=== PATIENT | female | born 1995 | race Two or more races ===

== ENCOUNTER 2025-07-07 10:03 | Outpatient (AMB) | payer MEDICAID, SELFPAY ==
[2025-07-07 10:22] VITALS: BP 113/72; PULSE 90; RESP 18; TEMP 36.4; O2SAT 98; BMI 28.8
--- NOTE | 2025-07-07 10:22 | OBCLNT_ITS ---
Vital Signs 07/07/25 10:22 Height 1.55 m Height Method Measured Weight 69.116 kg Weight Measurement Method Standing Scale BMI 28.8 BP 113/72 Blood Pressure Source Automatic Cuff Blood Pressure Location Left Upper Arm Position Sitting Respiration 18 Pulse 90 Pulse Source Monitor Temp 97.5 F Temp Source Oral Pulse Oximetry (%) 98 Oxygen Delivery Method Room Air Allergies/Home Meds Allergies & Medications Allergies No Known Allergies Allergy (Verified 07/07/25 10:23) Medication Reconciliation No Known Home Medications 07/07/25 [History Confirmed 07/07/25] Intake Visit Data Collection New Patient or Established: New Patient (never been to [facility]) Reason for Visit:: INITIAL CARE Seen by Clinical Staff ONLY (RN/MA): No Agile Tester Required: No Do You Feel Safe at Home: Yes Authorities Contacted: N/A PCP or OBGYN visit in last 3 months: No Hx Now: Yes Are you currently on any form of Control: No Last menstrual period: 01/30/25 Pain Present Currently: No Pain Scale Used: Melendez-Blackman/Numerical Pain scale:: 0 Smoking Status Smoking Status: Never smoker Questionnaires Covid-19 Vaccine Questionnaire Has patient been vacinated for Covid-19 Have you been vacinated for Covid-19: Yes PHQ-9 PHQ-2 Over the last 2 weeks, how often have you been bothered by any of the following problems? 1. Little interest or pleasure in doing things: not at all 2. Feeling down, depressed, or hopeless: not at all Total score: 0 PHQ-9 3. Trouble falling or staying asleep, or sleeping too much: Not at all 4. Feeling tired or having little energy: Not at all 5. Poor appetite or overeating: Not at all 6. Feeling bad about yourself - or that you are a failure or have let yourself or your family down: Not at all 7. Trouble concentrating on things, such as reading the newspaper or watching television: Not at all 8. Moving or speaking so slowly that other people could have noticed? - Or the opposite - being so fidgety or restless that you have been moving around a lot more than usual: not at all 9. Thoughts that you would be better off or of hurting yourself in some way: Not at all Total score: 0 Source: Developed by Drs. Silver Helm, Aurea Gusman, Jamin Dior and colleagues, with an educational azeem from [employer]. Depression screen completed yes Social History Living Situation History Marital Status: Lives With: Family Housing: House Tobacco History Smoking Status: Never smoker Second Hand Smoke Exposure: No Alcohol History Alcohol Intake: Never Domestic Abuse History Do You Feel Safe at Home: Yes History of Present Illness HPI Narrative Chief Complaint First obstetric visit for at 22 weeks and 4 days gestation Cynthia Miranda, a 29-year-old woman, presents for her first obstetric visit. She reports her last menstrual period was on January 30, which corresponds to an estimated gestational age of 22 weeks and 4 days, with a due date of November 10. The patient has a history of one previous section in 2021. Leroy previous section was performed due to the baby being in a non-favorable position (not head down). She reports that the baby never turned, and she experienced excessive contractions during labor. The baby's weight was 6 pounds 7 ounces. The patient denies any current medical problems. She expresses some anxiety about invasive testing procedures, recalling that during her previous , there was mention of a procedure involving poking through. However, she is reassured to learn that current genetic testing is primarily done through blood tests. Cynthia reports that her son from the previous is doing well and has grown significantly, now weighing 40 pounds. She describes him as gigantic compared to his size, indicating a positive outcome from her previous . Surgical History: - section in 2021 due to breech presentation Obstetric History: - GPAL: G2 T1 L1 - Previous : delivery in 2021, complicated by breech presentation Social History: - Has a son born in 2021 - Ultrasound (07-06-2025): Gestational age 21 weeks 6 days, heart rate 165 bpm (normal), head circumference measuring 21 weeks 2 days, overall measurements consistent with 21 weeks 5 days gestation OB Initial Visit OB Flowsheet OB Flowsheet Initial Weight: Not Recorded Date -?-?-?-?-?-?-?-?-?-?-?-?- EGA Weight BP Alb Glu CTX Pres Fundal ht FHR Mov Dilation Station Effacement Hx Notes Visit Note 07/07/25 -?-?-?-?-?-?-?-?-?--?-?-?- 22w 4d 69.116 kg 113/72 Cynthia Miranda, a 29-year-old , presents for her first OB visit at 22 weeks and 4 days by LMP (January 30), with ultrasound dating consistent at 21w6d. She has a history of a prior section in 2021 for breech presentation and failure to progress. She denies current medical issues and expresses anxiety about invasive testing, but was reassured that blood-based screening is standard. heart rate today was 165 bpm, and head and abdomen were visualized on ultrasound. 22-week intrauterine in a patient with a prior . is progressing appropriately with normal heart rate and growth. Plan includes completing initial OB labs, 1-hour glucose screening, and genetic testing. A detailed anatomy ultrasound will be performed. She will continue vitamins and return in 2 weeks for review of labs and to finalize plans for a repeat delivery. Menstrual History Menstrual reliability: definite Flow: normal Menstrual regularity: irregular Monthly: No Age at menarche: 11 On control pills at conception: No Associated symptoms (LMP): Reports fatigue, breast tenderness and bloating OB History : 2 Para: 1 # of Living Children: 1 Delivery History 1st : Child's name: LEIDY date: 03/15/22 sex: male Gestational age at delivery (weeks): 41 Delivery type: History of depression before or after : No Infection History & Risk Evaluation History of STDs: none Genetic Screening & History Genetic Screening/Teratology Counseling - Includes patient, baby's father, or anyone in either family with: 1. Patient's age 35 years or older as of estimated date of delivery: No 2. Thalassemia (Panamanian, Gabonese, Mediterranean, or Background); MCV less than 80: No 3. Neural Tube Defect (Meningomyelocele, Spina Bifida, or Anencephaly): No 4. Congenital Heart Defect: No 5. Down Syndrome: No 6. Tin-Sachs (Ashkenazi Restorationist, Cajun, English [place]): No 7. Lisa Disease (Ashkenazi Restorationist): No 8. Familial Dysautonomia (Ashkenazi Restorationist): No 9. Sickle Cell Disease or Trait (): No 10. Hemophilia or other blood disorders: No 11. Muscular Dystrophy: No 12. Cystic Fibrosis: No 13. Jackie's Chorea: No 14. Mental Retardation/Autism: No 15. Other inherited genetic or chromosomal disorder: No 16. Maternal Metabolic Disorder (EG,TYPE 1 Diabetes, PKU): No 17. Patient or baby's father had a child with defects not listed above: No 18. Recurrent loss or a stillbirth: No 19. Medications (including supplements, vitamins, herbs or otc drugs)/illicit/re creational drugs/alcohol since last menstrual period: No 20. Any other: No Infection History 1. Live with someone with TB or exposed to TB: No 2. Rash or viral illness since last menstrual period: No 3. Hepatitis B,C: No Other (see comments) Source: [employer] Review of Systems Constitutional Constitutional: Reports fatigue Gastrointestinal Gastrointestinal: Reports bloating Endocrine Endocrine: Reports fatigue Exam Narrative Physical exam: - Obstetric Examination: heartbeat detected at 165 bpm. head and stomach visualized on ultrasound. General Limitations: no limitations General Appearance: alert, in no apparent distress and comfortable Head Head exam: atraumatic and normocephalic Eye Eye exam: Present normal appearance, PERRL and EOMI Neck Neck exam: Present normal inspection and full ROM Chest Chest inspection: Present normal inspection and symmetric chest wall rise; Absent tenderness Resp Respiratory exam: Present normal lung sounds bilaterally; Absent respiratory distress Card Cardiovascular exam: Present regular rate and normal rhythm Abdominal Abdominal exam: Present soft and normal bowel sounds; Absent tenderness, guarding, rebound or rigidity Neuro Neurological exam: Present alert and oriented X3 Psych Psychiatric exam: Present normal affect Assessment & Plan Diagnosis / Problem List (1) Supervision of high risk , unspecified, first trimester: Status: Acute (2) Maternal care for low transverse scar from previous delivery: Status: Acute (3) Uterine size date discrepancy: Status: Acute Plan , intrauterine, 22 weeks 4 days Assessment: Patient is at 21 weeks 6 days gestation based on ultrasound measurements, which closely aligns with her reported last menstrual period of January 30. The estimated due date is November 08 or . heart rate was measured at 165 bpm, which is within normal range. The patient has a history of one previous section in 2021 due to malpresentation (breech) and failure to progress. The previous was not macrosomic, weighing 6 lbs 7 oz. Plan: - Complete initial OB panel, including one-hour glucose test and Nipent - Perform detailed ultrasound for more precise measurements and anatomy survey - Offer genetic testing for Down syndrome and sex determination - Continue vitamins - Schedule follow-up appointment in 2 weeks to review lab results - Anticipate repeat section for delivery due to previous
== END 2025-07-07 11:06 | disposition home or self-care (01) ==
LOC: HODSOBC 10:03
PROVIDERS: Supervising Provider Obstetrics & Gynecology; Visit Provider Obstetrics & Gynecology
DX: O09.292 Supervision of pregnancy with other poor reproductive or obstetric history, second trimester (principal); O34.211 Maternal care for low transverse scar from previous cesarean delivery; O09.892 Supervision of other high risk pregnancies, second trimester; O26.842 Uterine size-date discrepancy, second trimester; Z3A.22 22 weeks gestation of pregnancy; Z87.59 Personal history of other complications of pregnancy, childbirth and the puerperium
CPT/HCPCS: 99204; G0463

== ENCOUNTER → 2025-07-28 | Outpatient (CLI) | payer MEDICAID, SELFPAY ==
--- NOTE | 2025-07-28 09:36 | XR_ITS ---
Examination: Complete OB ultrasound greater than 14 weeks Date and time of exam: July 28, 2025, 0945 hours INDICATIONS: Diagnosis late to care Findings: Viable intrauterine single fetus with single amniotic sac presentation cephalic spine anterior Cardiac motion 145 bpm Placenta fundal posterior grade 1 Umbilical cord insertion seen Amniotic fluid volume adequate Cervix 4.5 cm closed Ovaries obscured by bowel gas. Composite estimated gestational age based on BPD, head circumference, abdominal circumference, femur length is 25 weeks 1 day Estimated weight 740 g. Survey of intracranial anatomy, spinal anatomy, abdominal anatomy, four-chamber heart performed with no abnormalities identified. Impression: Viable intrauterine gestation in cephalic presentation.
== END | disposition home or self-care (01) ==
LOC: CDIM 09:17
PROVIDERS: Referring Provider Obstetrics & Gynecology; Visit Provider Obstetrics & Gynecology
DX: O34.211 Maternal care for low transverse scar from previous cesarean delivery (principal); O09.91 Supervision of high risk pregnancy, unspecified, first trimester; O26.849 Uterine size-date discrepancy, unspecified trimester; Z3A.25 25 weeks gestation of pregnancy
CPT/HCPCS: 76805

== ENCOUNTER 2025-08-11 11:13 | Outpatient (AMB) | payer MEDICAID, SELFPAY ==
--- NOTE | 2025-08-11 11:50 | OBCLNT_ITS ---
Vital Signs 08/11/25 11:51 Height 1.55 m Height Method Stated Weight 72.348 kg Weight Measurement Method Standing Scale BMI 30.1 BP 113/72 Blood Pressure Source Automatic Cuff Blood Pressure Location Right Upper Arm Position Sitting Respiration 18 Pulse 98 Pulse Source Monitor Temp 97.8 F Temp Source Temporal Artery Scan Pulse Oximetry (%) 98 Oxygen Delivery Method Room Air Allergies/Home Meds Allergies & Medications Allergies No Known Allergies Allergy (Verified 08/11/25 12:02) Medication Reconciliation No Known Home Medications 07/07/25 [History Confirmed 08/11/25] Intake Visit Data Collection New Patient or Established: Established Patient (seen at [facility] within 3 years) Reason for Visit:: C LAB RESULTS Seen by Clinical Staff ONLY (RN/MA): No Washhouse Worker Required: No Do You Feel Safe at Home: Yes Authorities Contacted: N/A PCP or OBGYN visit in last 3 months: Yes Date of Last PCP or OBGYN visit: 07/07/25 Hx Now: Yes Are you currently on any form of Control: No Pain Present Currently: No Pain Scale Used: Melendez-Blackman/Numerical Pain scale:: 0 Smoking Status Smoking Status: Never smoker Immunizations Flu Vaccine in the Last 12 Months: No Flu Vaccine Exclusion Criteria: No Exclusion Criteria Questionnaires Covid-19 Vaccine Questionnaire Has patient been vacinated for Covid-19 Have you been vacinated for Covid-19: No PHQ-9 PHQ-2 Over the last 2 weeks, how often have you been bothered by any of the following problems? 1. Little interest or pleasure in doing things: not at all 2. Feeling down, depressed, or hopeless: not at all Total score: 0 PHQ-9 3. Trouble falling or staying asleep, or sleeping too much: Not at all 4. Feeling tired or having little energy: Not at all 5. Poor appetite or overeating: Not at all 6. Feeling bad about yourself - or that you are a failure or have let yourself or your family down: Not at all 7. Trouble concentrating on things, such as reading the newspaper or watching television: Not at all 8. Moving or speaking so slowly that other people could have noticed? - Or the opposite - being so fidgety or restless that you have been moving around a lot more than usual: not at all 9. Thoughts that you would be better off or of hurting yourself in some way: Not at all Total score: 0 If you checked off any problems, how difficult have these problems made it for you to do your work, take care of things at home, or get along with other people?: not difficult at all Source: Developed by Drs. Silver Helm, Aurea Gusman, Jamin Dior and colleagues, with an educational azeem from [employer]. Depression screen completed yes Social History Living Situation History Marital Status: Lives With: Family Housing: House Tobacco History Smoking Status: Never smoker Second Hand Smoke Exposure: No Alcohol History Alcohol Intake: Never Domestic Abuse History Do You Feel Safe at Home: Yes Care OB Visit Log OB Flowsheet Initial Weight: Not Recorded Date -?-?-?-?-?-?-?-?-?-?-?-?- EGA Weight BP Alb Glu CTX Pres Fundal ht FHR Mov Dilation Station Effacement Hx Notes Visit Note 07/07/25 -?-?-?-?-?-?-?-?-?-?-?-?- 22w 1d 69.116 kg 113/72 Cynthia Miranda, a 29-year-old , presents for her first OB visit at 22 weeks and 4 days by LMP (January 30), with ultrasound dating consistent at 21w6d. She has a history of a prior section in 2021 for breech presentation and failure to progress. She denies current medical issues and expresses anxiety about invasive testing, but was reassured that blood-based screening is standard. heart rate today was 165 bpm, and head and abdomen were visualized on ultrasound. 22-week intrauterine in a patient with a prior . is progressing appropriately with normal heart rate and growth. Plan includes completing initial OB labs, 1-hour glucose screening, and genetic testing. A detailed anatomy ultrasound will be performed. She will continue vitamins and return in 2 weeks for review of labs and to finalize plans for a repeat delivery. 08/11/25 -?-?-?-?-?-?-?-?-?-?-?-?- 27w 1d 72.348 kg 113/72 absent cephalic 28 145 - She reports experiencing muscle cramps, particularly in her legs. - Cramps typically occur once or twice per night - Last night was particularly bad with cramps occurring in both legs - She attributes increased cramping to walking more than usual - Cramps involve the muscle getting st uck in a cramped position - She reports adequate water intake and adherence to vitamins. - She describes an active baby that does somersaults. - Glucose screening test for diabetes - order provided, to be completed within the next month - Magnesium supplement for muscle cramps - Continue vitamins - Maintain hydration with minimum 32 oun fly of water daily - Follow-up appointment in 4 weeks, then every 2 weeks thereafter ЕЛЕНА Calculator Estimated Delivery Date Method Current WG Current Estimate 11/09/25 Ultrasound #1 27w 1d Other Estimates 11/06/25 LMP (Certain) 27w 4d Notes Visit Date: 08/11/25 Last Updated by: Dakota Robertson MD - laboratory panel: - Hepatitis B: negative - Hepatitis C: negative - RPR: non-reactive - Rubella: immune - Blood group: A positive - Antibody screen: negative - HIV: negative - Gonorrhea: negative - Chlamydia: negative - Hemoglobin: 11.5 g/dL - Platelets: 239 - NIPT (Non-Invasive Testing): negative for all trisomies, gender consistent with male - Ultrasound (07/28/2025): gestational age 25 weeks 1 day, consistent with estimated due date of November 06, 2025 Office Procedures OBC Clinic LOC & Office Proc's Nursing/Assessment Patient Status: Established Patient OB Clinic Nursing Assessment: Medication Reconciliation, Update PMH in EMR and Vital Signs OB Clinic Coordination of Care: Complex Care and Chronic Disease 1-5, Education Complex Pt/Fam, Consent,records obtained, informed consent, Lab and Imaging orders, Results/Orders obtained and Staff clarify orders Special Needs: Heart tones Established Patient Charge Established Patient Point Assignment: 140 Established Patient Point Charge: EP Level 4 (120-155) Assessment & Plan Diagnosis / Problem List (1) Uterine size date discrepancy: Status: Acute (2) Maternal care for low transverse scar from previous delivery: Status: Acute Plan Problem List - Muscle cramps Assessment 29-year-old at 27 weeks 4 days gestation with history of prior section and estimated due date of November 06, 2025. Patient presents with muscle cramps, particularly nocturnal leg cramps that have recently worsened. heart rate is 145 bpm, which is normal. Patient reports active movement with baby performing somersaults. All laboratory results are within normal limits including negative infectious disease screening, hemoglobin 11.5, and negative NIPT for trisomies. Ultrasound dating is consistent with menstrual dating. Patient has had limited care with only one prior visit and pending M referral. Plan - Glucose screening test for diabetes - order provided, to be completed within the next month - Magnesium supplement for muscle cramps - Continue vitamins - Maintain hydration with minimum 32 ounces of water daily - Follow-up appointment in 4 weeks, then every 2 weeks thereafter 1. Progress Reviewed gestational age (27 weeks 4 days), growth, and heart rate (145 bpm, normal). Planned frequent visits (every 4 weeks, then every 2 weeks). 2. Instructed patient to monitor movements and report decreases immediately. 3. Testing Counseled on routine third-trimester labs per guidelines (glucose screening ordered for diabetes testing). Discussed potential need for ultrasound or monitoring based on risk factors. 4. Preeclampsia Precaution Educated on preeclampsia signs: severe headache, vision changes, right upper quadrant pain, sudden swelling. Advised urgent reporting of symptoms and discussed blood pressure monitoring if high risk. 5. Labor Precautions Reviewed labor signs: regular contractions, pelvic pressure, back pain, bleeding, or fluid leakage. Instructed to seek immediate care for these symptoms. 6. Lifestyle and Delivery Preparation Reinforced vitamins, nutrition (minimum 32 ounces water daily), and safe activity. Recommended magnesium supplement for muscle cramps. Discussed plan, pain management, and . Advised on labor preparation (e.g., hospital bag) and expectations. 7. Psychosocial Support Assessed emotional well-being and offered resources for mental health or parenting support.
[2025-08-11 11:51] VITALS: BP 113/72; PULSE 98; RESP 18; TEMP 36.6; O2SAT 98; BMI 30.1
== END 2025-08-11 12:08 | disposition home or self-care (01) ==
PROVIDERS: Supervising Provider Obstetrics & Gynecology; Visit Provider Obstetrics & Gynecology
DX: O09.892 Supervision of other high risk pregnancies, second trimester (principal); O26.842 Uterine size-date discrepancy, second trimester; O09.292 Supervision of pregnancy with other poor reproductive or obstetric history, second trimester; O34.211 Maternal care for low transverse scar from previous cesarean delivery; O99.891 Other specified diseases and conditions complicating pregnancy; R25.2 Cramp and spasm; Z3A.27 27 weeks gestation of pregnancy; Z87.59 Personal history of other complications of pregnancy, childbirth and the puerperium
CPT/HCPCS: 99214; G0463

== ENCOUNTER 2025-09-08 08:58 | Outpatient (AMB) | payer MEDICAID, SELFPAY ==
[2025-09-08 09:14] VITALS: BP 123/98; PULSE 105; RESP 18; TEMP 36.5; O2SAT 98; BMI 30.3
--- NOTE | 2025-09-08 09:14 | OBCLNT_ITS ---
Vital Signs 09/08/25 09:14 Height 1.55 m Height Method Stated Weight 72.802 kg Weight Measurement Method Standing Scale BMI 30.3 BP 123/98 H Blood Pressure Source Automatic Cuff Blood Pressure Location Right Upper Arm Position Sitting Respiration 18 Pulse 105 H Pulse Source Monitor Temp 97.7 F Temp Source Temporal Artery Scan Pulse Oximetry (%) 98 Oxygen Delivery Method Room Air Allergies/Home Meds Allergies & Medications Allergies No Known Allergies Allergy (Verified 09/08/25 09:15) Medication Reconciliation No Known Home Medications 07/07/25 [History Confirmed 09/08/25] Immunizations Immunizations Flu Vaccine in the Last 12 Months: No Flu Vaccine Exclusion Criteria: Refused by Patient Care OB Visit Log OB Flowsheet Initial Weight: Not Recorded Date -?-?-?-?-?-?-?-?-?-?-?-?- EGA Weight BP Alb Glu CTX Pres Fundal ht FHR Mov Dilation Station Effacement Hx Notes Visit Note 07/07/25 -?-?-?-?-?-?-?-?-?-?-?-?- 22w 1d 69.116 kg 113/72 Cynthia Miranda, a 29-year-old , presents for her first OB visit at 22 weeks and 4 days by LMP (January 30), with ultrasound dating consistent at 21w6d. She has a history of a prior section in 2021 for breech presentation and failure to progress. She denies current medical issues and expresses anxiety about invasive testing, but was reassured that blood-based screening is standard. heart rate today was 165 bpm, and head and abdomen were visualized on ultrasound. 22-week intrauterine in a patient with a prior . is progressing appropriately with normal heart rate and growth. Plan includes completing initial OB labs, 1-hour glucose screening, and genetic testing. A detailed anatomy ultrasound will be performed. She will continue vitamins and return in 2 weeks for review of labs and to finalize plans for a repeat delivery. 08/11/25 -?-?-?-?-?-?-?-?-?-?-?-?- 27w 1d 72.348 kg 113/72 absent cephalic 28 145 - She reports experiencing muscle cramps, particularly in her legs. - Cramps typically occur once or twice per night - Last night was particularly bad with cramps occurring in both legs - She attributes increased cramping to walking more than usual - Cramps involve the muscle getting st uck in a cramped position - She reports adequate water intake and adherence to vitamins. - She describes an active baby that does somersaults. - Glucose screening test for diabetes - order provided, to be completed within the next month - Magnesium supplement for muscle cramps - Continue vitamins - Maintain hydration with minimum 32 oun fly of water daily - Follow-up appointment in 4 weeks, then every 2 weeks thereafter 09/08/25 -?-?-?-?-?-?-?-?-?-?-?-?- 31w 1d 72.802 kg 123/98 absent cephalic 32 165 - She reports no contractions, cramping, leaking, or bloody discharge. - Patient notes movement with the baby keeps turning but denies any concerning symptoms. - She completed a one-hour glucose test as ordered, though results are pending due to [facility] system issues. - Patient confirms overall well-being wi th no acute complaints or changes since last visit. - Await one hour glucose test results once [facility] portal system is restored - Maternal medicine ultrasound ref erral to evaluate placental location relative to previous scar, scheduled around 34 weeks gestation - booking to be scheduled when patient reaches 37-38 weeks gestation - Hospital registration to be arranged a fter is confirmed - Follow up in 2 weeks - Patient to expect call from Dr. Krishna alva's office for ultrasound appointment ЕЛЕНА Calculator Estimated Delivery Date Method Current WG Current Estimate 11/09/25 Ultrasound #1 31w 1d Other Estimates 11/06/25 LMP (Certain) 31w 4d Notes Visit Date: 08/11/25 Last Updated by: Dakota Robertson MD - laboratory panel: - Hepatitis B: negative - Hepatitis C: negative - RPR: non-reactive - Rubella: immune - Blood group: A positive - Antibody screen: negative - HIV: negative - Gonorrhea: negative - Chlamydia: negative - Hemoglobin: 11.5 g/dL - Platelets: 239 - NIPT (Non-Invasive Testing): negative for all trisomies, gender consistent with male - Ultrasound (07/28/2025): gestational age 25 weeks 1 day, consistent with estimated due date of November 06, 2025 Office Procedures OBC Clinic LOC & Office Proc's Nursing/Assessment Patient Status: Established Patient OB Clinic Nursing Assessment: Medication Reconciliation, Update PMH in EMR and Vital Signs OB Clinic Coordination of Care: Complex Care and Chronic Disease 1-5, Education Complex Pt/Fam, Consent,records obtained, informed consent, Lab and Imaging orders, Results/Orders obtained and Staff clarify orders Special Needs: Heart tones Established Patient Charge Established Patient Point Assignment: 140 Established Patient Point Charge: EP Level 4 (120-155) Assessment & Plan Diagnosis / Problem List (1) Uterine size date discrepancy: Status: Acute (2) Maternal care for low transverse scar from previous delivery: Status: Acute Plan Problem List - at 31 weeks and 1 day gestation - History of section - Placental location requiring evaluation Assessment 31-week and 1-day patient presenting for routine care. Patient reports movement with no contractions, cramping, leaking, or bloody discharge. heart rate is 147-148 bpm. One-hour glucose test results are pending due to [facility] system being down. Patient has history of previous section with need for maternal medicine consultation to evaluate placental location in relation to prior scar. Plan - Await one hour glucose test results once [facility] portal system is restored - Maternal medicine ultrasound referral to evaluate placental location relative to previous scar, scheduled around 34 weeks gestation - booking to be scheduled when patient reaches 37-38 weeks gestation - Hospital registration to be arranged after is confirmed - Follow up in 2 weeks - Patient to expect call from Dr. Buitrago's office for ultrasound appointment 1. Progress Reviewed gestational age (31 weeks 1 day), growth, and heart rate (147-148 bpm). Planned frequent visits (every 2 weeks until 36 weeks, then weekly). 2. Instructed patient to monitor movements and report decreases immediately. 3. Testing Counseled on routine third-trimester labs per guidelines. One hour glucose test completed but results pending due to [facility] system issues. Discussed potential need for ultrasound or monitoring based on risk factors. Maternal medicine referral placed for specialized ultrasound at 34 weeks to evaluate placental location relative to previous scar. 4. Preeclampsia Precaution Educated on preeclampsia signs: severe headache, vision changes, right upper quadrant pain, sudden swelling. Advised urgent reporting of symptoms and discussed blood pressure monitoring if high risk. 5. Labor Precautions Reviewed labor signs: regular contractions, pelvic pressure, back pain, bleeding, or fluid leakage. Instructed to seek immediate care for these symptoms. Patient denied contractions, cramping, leaking, or bloody discharge. 6. Lifestyle and Delivery Preparation Reinforced vitamins, nutrition, and safe activity. Discussed plan, pain management, and . booking planned for 39 weeks with hospital registration to follow. Advised on labor preparation (e.g., hospital bag) and expectations. 7. Psychosocial Support Assessed emotional well-being and offered resources for mental health or parenting support.
== END 2025-09-08 09:32 | disposition home or self-care (01) ==
LOC: HODSOBC 08:58
PROVIDERS: Supervising Provider Obstetrics & Gynecology; Visit Provider Obstetrics & Gynecology
DX: O09.893 Supervision of other high risk pregnancies, third trimester (principal); O26.843 Uterine size-date discrepancy, third trimester; O09.293 Supervision of pregnancy with other poor reproductive or obstetric history, third trimester; O34.211 Maternal care for low transverse scar from previous cesarean delivery; Z3A.31 31 weeks gestation of pregnancy; Z28.21 Immunization not carried out because of patient refusal
CPT/HCPCS: 99214; G0463

== ENCOUNTER 2025-09-23 08:20 | Outpatient (AMB) | payer MEDICAID, SELFPAY ==
[2025-09-23 08:39] VITALS: BP 117/75; PULSE 106; RESP 20; TEMP 36.7; O2SAT 97; BMI 30.6
--- NOTE | 2025-09-23 08:39 | OBCLNT_ITS ---
Vital Signs 09/23/25 08:39 Height 1.55 m Height Method Stated Weight 73.595 kg Weight Measurement Method Standing Scale BMI 30.6 BP 117/75 Blood Pressure Source Automatic Cuff Blood Pressure Location Left Upper Arm Position Sitting Respiration 20 Pulse 106 H Pulse Source Monitor Temp 98.1 F Temp Source Oral Pulse Oximetry (%) 97 Oxygen Delivery Method Room Air Allergies/Home Meds Allergies & Medications Allergies No Known Allergies Allergy (Verified 09/23/25 08:42) Medication Reconciliation No Known Home Medications 07/07/25 [History Confirmed 09/23/25] Immunizations Immunizations Flu Vaccine in the Last 12 Months: No Flu Vaccine Exclusion Criteria: Refused by Patient Care OB Visit Log OB Flowsheet Initial Weight: Not Recorded Date -?-?-?-?-?-?-?-?-?-?-?-?- EGA Weight BP Alb Glu CTX Pres Fundal ht FHR Mov Dilation Station Effacement Hx Notes Visit Note 07/07/25 -?-?-?-?-?-?-?-?-?-?-?-?- 22w 1d 69.116 kg 113/72 Cynthia Miranda, a 29-year-old , presents for her first OB visit at 22 weeks and 4 days by LMP (January 30), with ultrasound dating consistent at 21w6d. She has a history of a prior section in 2021 for breech presentation and failure to progress. She denies current medical issues and expresses anxiety about invasive testing, but was reassured that blood-based screening is standard. heart rate today was 165 bpm, and head and abdomen were visualized on ultrasound. 22-week intrauterine in a patient with a prior . is progressing appropriately with normal heart rate and growth. Plan includes completing initial OB labs, 1-hour glucose screening, and genetic testing. A detailed anatomy ultrasound will be performed. She will continue vitamins and return in 2 weeks for review of labs and to finalize plans for a repeat delivery. 08/11/25 -?-?-?-?-?-?-?-?-?-?-?-?- 27w 1d 72.348 kg 113/72 absent cephalic 28 145 - She reports experiencing muscle cramps, particularly in her legs. - Cramps typically occur once or twice per night - Last night was particularly bad with cramps occurring in both legs - She attributes increased cramping to walking more than usual - Cramps involve the muscle getting st uck in a cramped position - She reports adequate water intake and adherence to vitamins. - She describes an active baby that does somersaults. - Glucose screening test for diabetes - order provided, to be completed within the next month - Magnesium supplement for muscle cramps - Continue vitamins - Maintain hydration with minimum 32 oun fly of water daily - Follow-up appointment in 4 weeks, then every 2 weeks thereafter 09/08/25 -?-?-?-?-?-?-?-?-?-?-?-?- 31w 1d 72.802 kg 123/98 absent cephalic 32 165 - She reports no contractions, cramping, leaking, or bloody discharge. - Patient notes movement with the baby keeps turning but denies any concerning symptoms. - She completed a one-hour glucose test as ordered, though results are pending due to [facility] system issues. - Patient confirms overall well-being wi th no acute complaints or changes since last visit. - Await one hour glucose test results once [facility] portal system is restored - Maternal medicine ultrasound ref erral to evaluate placental location relative to previous scar, scheduled around 34 weeks gestation - booking to be scheduled when patient reaches 37-38 weeks gestation - Hospital registration to be arranged a fter is confirmed - Follow up in 2 weeks - Patient to expect call from Dr. Krishna alva's office for ultrasound appointment 09/23/25 -?-?-?-?-?-?-?-?-?-?-?-?- 33w 2d 73.595 kg 117/75 absent cephalic 34 155 - She reports the baby is active with frequent whole-body movements and somersaults rather than kicking. - She took the stairs this morning witho ut apparent difficulty. - She is awaiting maternal ultraso und results to schedule her section date. - She has been trying to obtain an appoi ntment with Dr. Tim Buitrago's office after experiencing confusion about referral processing through the hospital versus the office directly. - Cordell naranjo to call Dr. Tim Buitrago's office ([phone]) on to follow up on maternal ultrasound referral status - If ultrasound appointment is scheduled more than 15 days out, patient to call back for alternative arrangements - date to be scheduled pending ultrasound results to determine position - Follow up in 2 weeks, then weekly visi ts thereafter ЕЛЕНА Calculator Estimated Delivery Date Method Current WG Current Estimate 11/09/25 Ultrasound #1 33w 2d Other Estimates 11/06/25 LMP (Certain) 33w 5d Notes Visit Date: 08/11/25 Last Updated by: Dakota Robertson MD - laboratory panel: - Hepatitis B: negative - Hepatitis C: negative - RPR: non-reactive - Rubella: immune - Blood group: A positive - Antibody screen: negative - HIV: negative - Gonorrhea: negative - Chlamydia: negative - Hemoglobin: 11.5 g/dL - Platelets: 239 - NIPT (Non-Invasive Testing): negative for all trisomies, gender consistent with male - Ultrasound (07/28/2025): gestational age 25 weeks 1 day, consistent with estimated due date of November 06, 2025 Office Procedures OBC Clinic LOC & Office Proc's Nursing/Assessment Patient Status: Established Patient OB Clinic Nursing Assessment: Medication Reconciliation, Update PMH in EMR and Vital Signs OB Clinic Coordination of Care: Complex Care and Chronic Disease 1-5, Consent,records obtained, informed consent, Education Simp Pt/Fam, 1 Ins Authorization, Lab and Imaging orders, Results/Orders obtained and Staff clarify orders Special Needs: Heart tones Established Patient Charge Established Patient Point Assignment: 150 Established Patient Point Charge: EP Level 4 (120-155) Assessment & Plan Diagnosis / Problem List (1) Uterine size date discrepancy: Status: Acute (2) Maternal care for low transverse scar from previous delivery: Status: Acute Plan Problem List - at 33 weeks and 2 days gestation - Planned section Assessment 33-week 2-day patient with pending maternal ultrasound results needed to determine positioning prior to scheduling section. Patient reports active movement with whole-body movements and somersaults rather than kicking. heart rate is 146 bpm, which is normal. Patient has difficulty accessing maternal medicine specialist due to referral processing issues. Plan - Patient to call Dr. Tim Buitrago's office ([phone]) on to follow up on maternal ultrasound referral status - If ultrasound appointment is scheduled more than 15 days out, patient to call back for alternative arrangements - date to be scheduled pending ultrasound results to determine position - Follow up in 2 weeks, then weekly visits thereafter 1. Progress Reviewed gestational age at 33 weeks and 2 days, growth, and heart rate of 146 bpm (normal). Patient reports active baby with whole-body movements and somersaults. Planned frequent visits (every 2 weeks until 36 weeks, then weekly) - next visit scheduled in 2 weeks. 2. Instructed patient to monitor movements and report decreases immediately. 3. Testing Monoglucose results were provided at last visit. Maternal ultrasound results still pending - patient instructed to contact Dr. Tim Buitrago's office ([phone]) on to follow up on referral status and scheduling. 4. Preeclampsia Precaution Educated on preeclampsia signs: severe headache, vision changes, right upper quadrant pain, sudden swelling. Advised urgent reporting of symptoms and discussed blood pressure monitoring if high risk. 5. Labor Precautions Reviewed labor signs: regular contractions, pelvic pressure, back pain, bleeding, or fluid leakage. Instructed to seek immediate care for these symptoms. 6. Lifestyle and Delivery Preparation Patient reports taking stairs for activity. Planned section delivery - waiting for ultrasound results to determine position before scheduling C- section date. Reinforced vitamins, nutrition, and safe activity. 7. Psychosocial Support Assessed emotional well-being and offered resources for mental health or parenting support.
== END 2025-09-23 09:02 | disposition home or self-care (01) ==
LOC: HODSOBC 08:20
PROVIDERS: Supervising Provider Obstetrics & Gynecology; Visit Provider Obstetrics & Gynecology
DX: O09.893 Supervision of other high risk pregnancies, third trimester (principal); O26.843 Uterine size-date discrepancy, third trimester; O09.293 Supervision of pregnancy with other poor reproductive or obstetric history, third trimester; O34.211 Maternal care for low transverse scar from previous cesarean delivery; Z3A.33 33 weeks gestation of pregnancy; Z28.21 Immunization not carried out because of patient refusal
CPT/HCPCS: 99214; G0463

== ENCOUNTER 2025-10-06 09:16 | Outpatient (AMB) | payer MEDICAID, SELFPAY ==
[2025-10-06 09:26] VITALS: BP 115/77; PULSE 101; RESP 18; TEMP 36.7; O2SAT 98; BMI 31.1
--- NOTE | 2025-10-06 09:26 | OBCLNT_ITS ---
Vital Signs 10/06/25 09:26 Height 1.55 m Height Method Stated Weight 74.899 kg Weight Measurement Method Standing Scale BMI 31.1 BP 115/77 Blood Pressure Source Automatic Cuff Blood Pressure Location Left Upper Arm Position Sitting Respiration 18 Pulse 101 H Pulse Source Monitor Temp 98.1 F Temp Source Oral Pulse Oximetry (%) 98 Oxygen Delivery Method Room Air Allergies/Home Meds Allergies & Medications Allergies No Known Allergies Allergy (Verified 10/06/25 09:26) Medication Reconciliation vitamins-iron fumarate 66 mg iron-folic acid 1 mg tablet tab PO 10/06/25 [History Confirmed 10/06/25] Immunizations Immunizations Flu Vaccine in the Last 12 Months: No Flu Vaccine Exclusion Criteria: Refused by Patient Care OB Visit Log OB Flowsheet Initial Weight: Not Recorded Date -?-?-?-?-?-?-?-?-?-?-?-?- EGA Weight BP Alb Glu CTX Pres Fundal ht FHR Mov Dilation Station Effacement Hx Notes Visit Note 07/07/25 -?-?-?-?-?-?-?-?-?-?-?-?- w 4d 69.116 kg 113/72 Cynthia Miranda, a 29-year-old , presents for her first OB visit at 22 weeks and 4 days by LMP (January 30), with ultrasound dating consistent at 21w6d. She has a history of a prior section in 2021 for breech presentation and failure to progress. She denies current medical issues and expresses anxiety about invasive testing, but was reassured that blood-based screening is standard. heart rate today was 165 bpm, and head and abdomen were visualized on ultrasound. 22-week intrauterine in a patient with a prior . is progressing appropriately with normal heart rate and growth. Plan includes completing initial OB labs, 1-hour glucose screening, and genetic testing. A detailed anatomy ultrasound will be performed. She will continue vitamins and return in 2 weeks for review of labs and to finalize plans for a repeat delivery. 08/11/25 -?-?-?-?-?-?-?-?-?-?-?-?- 27w 4d 72.348 kg 113/72 absent cephalic 28 145 - She reports experiencing muscle cramps, particularly in her legs. - Cramps typically occur once or twice per night - Last night was particularly bad with cramps occurring in both legs - She attributes increased cramping to walking more than usual - Cramps involve the muscle getting st uck in a cramped position - She reports adequate water intake and adherence to vitamins. - She describes an active baby that does somersaults. - Glucose screening test for diabetes - order provided, to be completed within the next month - Magnesium supplement for muscle cramps - Continue vitamins - Maintain hydration with minimum 32 oun fly of water daily - Follow-up appointment in 4 weeks, then every 2 weeks thereafter 09/08/25 -?-?-?-?-?-?-?-?-?-?-?-?- 31w 4d 72.802 kg 123/98 absent cephalic 32 165 - She reports no contractions, cramping, leaking, or bloody discharge. - Patient notes movement with the baby keeps turning but denies any concerning symptoms. - She completed a one-hour glucose test as ordered, though results are pending due to [facility] system issues. - Patient confirms overall well-being wi th no acute complaints or changes since last visit. - Await one hour glucose test results once [facility] portal system is restored - Maternal medicine ultrasound ref erral to evaluate placental location relative to previous scar, scheduled around 34 weeks gestation - booking to be scheduled when patient reaches 37-38 weeks gestation - Hospital registration to be arranged a fter is confirmed - Follow up in 2 weeks - Patient to expect call from Dr. Krishna alva's office for ultrasound appointment 09/23/25 -?-?-?-?-?-?-?-?-?-?-?-?- 33w 5d 73.595 kg 117/75 absent cephalic 34 155 - She reports the baby is active with frequent whole-body movements and somersaults rather than kicking. - She took the stairs this morning witho ut apparent difficulty. - She is awaiting maternal ultraso und results to schedule her section date. - She has been trying to obtain an appoi ntment with Dr. Tim Buitrago's office after experiencing confusion about referral processing through the hospital versus the office directly. - Cordell naranjo to call Dr. Tim Buitrago's office ([phone]) on to follow up on maternal ultrasound referral status - If ultrasound appointment is scheduled more than 15 days out, patient to call back for alternative arrangements - date to be scheduled pending ultrasound results to determine position - Follow up in 2 weeks, then weekly visi ts thereafter 10/06/25 -?-?-?-?-?-?-?-?-?-?-?-?- 35w 4d 74.899 kg 115/77 absent cephalic 35 155 - She had an [facility] ultrasound on 09/28/2025 showing a single living fetus with appropriate growth parameters. - Patient reports feeling sore in her ab domen, describing it as stretching rather than contractions. - She can feel the baby positioned mor e on one side of her abdomen. - She expresses some anxiety about her u pcoming scheduled section, noting she was not nervous with her first delivery because she didn't look into it but now has experience. - Patient recalls her first delivery exp erience where she labored for approximately 2 days and when it came time to push, she felt exhausted and unable to continue. - She was told pushing would take at l east 40 minutes for a first-time mother. - She opted for section, whic h was ultimately necessary as the baby's head was stuck. - She denies having actual contractions currently. - Patient completed GBS swab collection during this visit. - Scheduled section for October 30 at 39 weeks gestation - GBS swab performed (self-administered vaginal-rectal swab) - Follow-up appointment in 2 weeks for p re-operative visit - Patient advised to sleep on left side with pillow support to encourage positioning ЕЛЕНА Calculator Estimated Delivery Date Method Current WG Current Estimate 11/06/25 LMP (Certain) 36w 0d Other Estimates 11/09/25 Ultrasound #1 35w 4d Notes Visit Date: 10/06/25 Last Updated by: Dakota Robertson MD - Date: 09/28/2025 - [facility] Ultrasound: Single living fetus, gestational age 34 weeks 1 day, corresponding due date 11/06, composite age 33 weeks 5 days, estimated weight 2457 grams, amniotic fluid within normal limits, visualized structures normal (full anatomy unable to be evaluated due to advanced gestation), placenta posterior-right lateral, presentation cephalic Visit Date: 08/11/25 Last Updated by: Dakota Robertson MD - laboratory panel: - Hepatitis B: negative - Hepatitis C: negative - RPR: non-reactive - Rubella: immune - Blood group: A positive - Antibody screen: negative - HIV: negative - Gonorrhea: negative - Chlamydia: negative - Hemoglobin: 11.5 g/dL - Platelets: 239 - NIPT (Non-Invasive Testing): negative for all trisomies, gender consistent with male - Ultrasound (07/28/2025): gestational age 25 weeks 1 day, consistent with estimated due date of November 06, 2025 Office Procedures OBC Clinic LOC & Office Proc's Nursing/Assessment Patient Status: Established Patient OB Clinic Nursing Assessment: Medication Reconciliation, Update PMH in EMR and Vital Signs OB Clinic Coordination of Care: Complex Care and Chronic Disease 1-5, Consent,records obtained, informed consent, Education Simp Pt/Fam, 1 Ins Authorization, Lab and Imaging orders, Results/Orders obtained and Staff clarify orders Special Needs: Heart tones Miscellaneous Interventions: Culture Specimen Collection Established Patient Charge Established Patient Point Assignment: 165 Established Patient Point Charge: EP Level 5 (160-above) Assessment & Plan Diagnosis / Problem List (1) Uterine size date discrepancy: Status: Acute (2) Maternal care for low transverse scar from previous delivery: Status: Acute Plan Problem List - at 34 weeks gestation - Previous delivery - Scheduled repeat delivery Assessment Cynthia is a 2, para 1 patient with a history of previous section, currently at 34 weeks and 1 day gestation based on [facility] ultrasound performed on 09/28/2025. The fetus demonstrates appropriate growth parameters with composite gestational age of 33 weeks and 5 days, estimated weight of 2457 grams, and normal amniotic fluid volume. presentation is cephalic with posterior-right lateral placental location. Due to advanced gestational age, complete anatomical evaluation was limited, however all visualized structures appeared normal. The patient reports abdominal soreness related to stretching and asymmetric positioning. Her previous delivery required section due to head entrapment during attempted vaginal delivery after prolonged labor. Plan - Scheduled section for October 30 at 39 weeks gestation - GBS swab performed (self-administered vaginal-rectal swab) - Follow-up appointment in 2 weeks for pre-operative visit - Patient advised to sleep on left side with pillow support to encourage positioning 1. Progress Reviewed gestational age at 34 weeks 1 day, growth with estimated weight of 2457 grams (33 weeks 5 days composite age), and heart rate at 155 bpm. Planned frequent visits (every 2 weeks until 36 weeks, then weekly). 2. Instructed patient to monitor movements and report decreases immediately. 3. Testing Counseled on routine third-trimester labs per guidelines including GBS swab which was performed. Discussed potential need for ultrasound or monitoring based on risk factors. 4. Preeclampsia Precaution Educated on preeclampsia signs: severe headache, vision changes, right upper quadrant pain, sudden swelling. Advised urgent reporting of symptoms and discussed blood pressure monitoring if high risk. 5. Labor Precautions Reviewed labor signs: regular contractions, pelvic pressure, back pain, bleeding, or fluid leakage. Instructed to seek immediate care for these symptoms. 6. Lifestyle and Delivery Preparation Reinforced vitamins, nutrition, and safe activity. Discussed plan with scheduled section on October 30, pain management, and . Advised on labor preparation (e.g., hospital bag) and expectations. 7. Psychosocial Support Assessed emotional well-being and offered resources for mental health or parenting support.
== END 2025-10-06 09:59 | disposition home or self-care (01) ==
PROVIDERS: Supervising Provider Obstetrics & Gynecology; Visit Provider Obstetrics & Gynecology
DX: O09.293 Supervision of pregnancy with other poor reproductive or obstetric history, third trimester (principal); O34.211 Maternal care for low transverse scar from previous cesarean delivery; O09.893 Supervision of other high risk pregnancies, third trimester; O26.843 Uterine size-date discrepancy, third trimester; Z3A.35 35 weeks gestation of pregnancy; Z36.85 Encounter for antenatal screening for Streptococcus B; Z28.21 Immunization not carried out because of patient refusal
CPT/HCPCS: 99215; G0463

== ENCOUNTER 2025-10-14 14:07 | Outpatient (AMB) | payer MEDICAID, SELFPAY ==
[2025-10-14 14:18] VITALS: BP 124/74; PULSE 118; RESP 18; TEMP 36.8; O2SAT 98; BMI 31.7
--- NOTE | 2025-10-14 14:18 | OBCLNT_ITS ---
Vital Signs 10/14/25 14:18 Height 1.55 m Height Method Stated Weight 76.26 kg Weight Measurement Method Standing Scale BMI 31.7 BP 124/74 Blood Pressure Source Automatic Cuff Blood Pressure Location Left Upper Arm Position Sitting Respiration 18 Pulse 118 H Pulse Source Monitor Temp 98.2 F Temp Source Oral Pulse Oximetry (%) 98 Oxygen Delivery Method Room Air Allergies/Home Meds Allergies & Medications Allergies No Known Allergies Allergy (Verified 10/14/25 14:19) Medication Reconciliation vitamins-iron fumarate 66 mg iron-folic acid 1 mg tablet tab PO 10/06/25 [History Confirmed 10/14/25] Immunizations Immunizations Flu Vaccine in the Last 12 Months: Yes Flu Vaccine Exclusion Criteria: Already Received Care OB Visit Log OB Flowsheet Initial Weight: Not Recorded Date -?-?-?-?-?-?-?-?-?-?-?-?- EGA Weight BP Alb Glu CTX Pres Fundal ht FHR Mov Dilation Station Effacement Hx Notes Visit Note 07/07/25 -?-?-?-?-?-?-?-?-?-?-?-?- w 4d 69.116 kg 113/72 Cynthia Miranda, a 29-year-old , presents for her first OB visit at 22 weeks and 4 days by LMP (January 30), with ultrasound dating consistent at 21w6d. She has a history of a prior section in 2021 for breech presentation and failure to progress. She denies current medical issues and expresses anxiety about invasive testing, but was reassured that blood-based screening is standard. heart rate today was 165 bpm, and head and abdomen were visualized on ultrasound. 22-week intrauterine in a patient with a prior . is progressing appropriately with normal heart rate and growth. Plan includes completing initial OB labs, 1-hour glucose screening, and genetic testing. A detailed anatomy ultrasound will be performed. She will continue vitamins and return in 2 weeks for review of labs and to finalize plans for a re peat delivery. 08/11/25 -?-?-?-?-?-?-?-?-?-?-?-?- 27w 4d 72.348 kg 113/72 absent cephalic 28 145 - She reports experiencing muscle cramps, particularly in her legs. - Cramps typically occur once or twice per night - Last night was particularly bad with cramps occurring in both legs - She attributes increased cramping to walking more than usual - Cramps involve the muscle getting st uck in a cramped position - She reports adequate water intake and adherence to vitamins. - She describes an active baby that does somersaults. - Glucose screening test for diabetes - order provided, to be completed within the next month - Magnesium supplement for muscle cramps - Continue vitamins - Maintain hydration with minimum 32 oun fly of water daily - Follow-up appointment in 4 weeks, then every 2 weeks thereafter 09/08/25 -?-?-?-?-?-?-?-?-?-?-?-?- 31w 4d 72.802 kg 123/98 absent cephalic 32 165 - She reports no contractions, cramping, leaking, or bloody discharge. - Patient notes movement with the baby keeps turning but denies any concerning symptoms. - She completed a one-hour glucose test as ordered, though results are pending due to [facility] system issues. - Patient confirms overall well-being wi th no acute complaints or changes since last visit. - Await one hour glucose test results once [facility] portal system is restored - Maternal medicine ultrasound ref erral to evaluate placental location relative to previous scar, scheduled around 34 weeks gestation - booking to be scheduled when patient reaches 37-38 weeks gestation - Hospital registration to be arranged a fter is confirmed - Follow up in 2 weeks - Patient to expect call from Dr. Krishna alva's office for ultrasound appointment 09/23/25 -?-?-?-?-?-?-?-?-?-?-?-?- 33w 5d 73.595 kg 117/75 absent cephalic 34 155 - She reports the baby is active with frequent whole-body movements and somersaults rather than kicking. - She took the stairs this morning witho ut apparent difficulty. - She is awaiting maternal ultraso und results to schedule her section date. - She has been trying to obtain an appoi ntment with Dr. Tim Buitrago's office after experiencing confusion about referral processing through the hospital versus the office directly. - Cordell naranjo to call Dr. Tim Buitrago's office ([phone]) on to follow up on maternal ultrasound referral status - If ultrasound appointment is scheduled more than 15 days out, patient to call back for alternative arrangements - date to be scheduled pending ultrasound results to determine position - Follow up in 2 weeks, then weekly visi ts thereafter 10/06/25 -?-?-?-?-?-?-?-?-?-?-?-?- 35w 4d 74.899 kg 115/77 absent cephalic 35 155 - She had an [facility] ultrasound on 09/28/2025 showing a single living fetus with appropriate growth parameters. - Patient reports feeling sore in her ab domen, describing it as stretching rather than contractions. - She can feel the baby positioned mor e on one side of her abdomen. - She expresses some anxiety about her u pcoming scheduled section, noting she was not nervous with her first delivery because she didn't look into it but now has experience. - Patient recalls her first delivery exp erience where she labored for approximately 2 days and when it came time to push, she felt exhausted and unable to continue. - She was told pushing would take at l east 40 minutes for a first-time mother. - She opted for section, whic h was ultimately necessary as the baby's head was stuck. - She denies having actual contractions currently. - Patient completed GBS swab collection during this visit. - Scheduled section for October 30 at 39 weeks gestation - GBS swab performed (self-administered vaginal-rectal swab) - Follow-up appointment in 2 weeks for p re-operative visit - Patient advised to sleep on left side with pillow support to encourage positioning 10/14/25 -?-?-?-?-?-?-?-?-?-?-?-?- 36w 5d 76.26 kg 124/74 absent cephalic 37 145 - She reports the baby is active with no contractions or other issues. - She describes the baby sticking out o n one side and notes that when she sleeps on the other side, the baby shifts. - She experiences poking sensations that might be an elbow or knee. - She denies contractions, leaking, or b leeding. - She denies decreased movement. - section scheduled for October 30 - Patient has appointment scheduled for October 28 - Return to hospital if experiencing con tractions every 5 minutes lasting more than 30 minutes, leaking, bleeding, or decreased movement for more than 2 hours ЕЛЕНА Calculator Estimated Delivery Date Method Current WG Current Estimate 11/06/25 LMP (Certain) 36w 5d Other Estimates 11/09/25 Ultrasound #1 36w 2d Notes Visit Date: 10/06/25 Last Updated by: Dakota Robertson MD - Date: 09/28/2025 - [facility] Ultrasound: Single living fetus, gestational age 34 weeks 1 day, corresponding due date 11/06, composite age 33 weeks 5 days, estimated weight 2457 grams, amniotic fluid within normal limits, visualized structures normal (full anatomy unable to be evaluated due to advanced gestation), placenta posterior-right lateral, presentation cephalic Visit Date: 08/11/25 Last Updated by: Dakota Robertson MD - laboratory panel: - Hepatitis B: negative - Hepatitis C: negative - RPR: non-reactive - Rubella: immune - Blood group: A positive - Antibody screen: negative - HIV: negative - Gonorrhea: negative - Chlamydia: negative - Hemoglobin: 11.5 g/dL - Platelets: 239 - NIPT (Non-Invasive Testing): negative for all trisomies, gender consistent with male - Ultrasound (07/28/2025): gestational age 25 weeks 1 day, consistent with estimated due date of November 06, 2025 Office Procedures OBC Clinic LOC & Office Proc's Nursing/Assessment Patient Status: Established Patient OB Clinic Nursing Assessment: Medication Reconciliation, Update PMH in EMR and Vital Signs OB Clinic Coordination of Care: Complex Care and Chronic Disease 1-5, Consent,records obtained, informed consent, Education Simp Pt/Fam, Lab and Imaging orders, Results/Orders obtained and Staff clarify orders Special Needs: Heart tones Established Patient Charge Established Patient Point Assignment: 135 Established Patient Point Charge: EP Level 4 (120-155) Assessment & Plan Diagnosis / Problem List (1) Uterine size date discrepancy: Status: Acute (2) Maternal care for low transverse scar from previous delivery: Status: Acute Plan Assessment 29-year-old female at 36 weeks and 5 days gestation, 2 para 1, with history of prior section presenting for routine visit. Group B streptococcus culture is negative. Patient reports active movement with no contractions or other concerning symptoms. heart rate is 153 beats per minute, which is within normal limits. Patient experiences positioning changes with movement to different sides and occasional discomfort from parts protruding. Blood pressure is documented as normal. Plan - section scheduled for October 30 - Patient has appointment scheduled for October 28 - Return to hospital if experiencing contractions every 5 minutes lasting more than 30 minutes, leaking, bleeding, or decreased movement for more than 2 hours 1. Progress Reviewed gestational age at 36 weeks 5 days, growth, and heart rate of 153 bpm (normal). Patient reports baby is active with no contractions or issues. Scheduled repeat section on October 30. 2. Instructed patient to monitor movements and report if baby is not active for more than 2 hours. 3. Testing Group B strep culture completed and negative. 4. Preeclampsia Precaution Blood pressure noted as normal during visit. 5. Labor Precautions Reviewed labor signs: contractions coming every 5 minutes lasting more than half an hour, any leaking, any bleeding as reasons to come get checked out. 6. Lifestyle and Delivery Preparation Discussed upcoming delivery scheduled for October 30. Patient has follow-up appointment scheduled for October 28. 7. Psychosocial Support Patient reports doing well overall with no specific concerns expressed.
== END 2025-10-14 14:29 | disposition home or self-care (01) ==
LOC: HODSOBC 14:07
PROVIDERS: Supervising Provider Obstetrics & Gynecology; Visit Provider Obstetrics & Gynecology
DX: O09.893 Supervision of other high risk pregnancies, third trimester (principal); O26.843 Uterine size-date discrepancy, third trimester; O09.293 Supervision of pregnancy with other poor reproductive or obstetric history, third trimester; O34.211 Maternal care for low transverse scar from previous cesarean delivery; Z3A.36 36 weeks gestation of pregnancy
CPT/HCPCS: 99214; G0463